=== PATIENT | female | born 1960 | race Native Hawaiian/Other Pacific Islander ===

== ENCOUNTER 2019-05-14 08:14 | Outpatient (CLI) | payer OTHER ==
[2019-05-14 11:04] LABS: HEMATOCRIT 42.6 % (36-48); HEMOGLOBIN 14.2 g/dL (12.0-16.0); LYMPHOCYTES # (AUTO) 2.8 K/uL (1.0-5.5); LYMPHOCYTES % (AUTO) 38.4 % (20.5-51.5); MEAN CORPUSCULAR HEMOGLOBIN 32 pg (27-31); MEAN CORPUSCULAR HGB CONC 33 % (32-36); MEAN CORPUSCULAR VOLUME 95 fL (79.0-98.0); MONOCYTES # (AUTO) 0.6 K/uL (0.0-1.0); MONOCYTES % (AUTO) 8.9 % (1.7-9.3); NEUTROPHILS # (AUTO) 3.8 K/uL (1.8-7.7); NEUTROPHILS % (AUTO) 52.7 % (40.0-70.0); PLATELET COUNT (AUTO) 257 K/uL (130-430); RED BLOOD CELL COUNT(AUTO) 4.49 MIL/uL (4.2-6.2); WHITE BLOOD COUNT (AUTO) 7.2 K/uL (4.8-10.8)
[2019-05-14 11:13] LABS: ALBUMIN 3.9 g/dL (3.4-4.8); CALCIUM 9.7 mg/dL (8.4-11.0); CREATININE 0.99 mg/dL (0.55-1.30); POTASSIUM 3.8 mmol/L (3.5-5.1); THYROID STIMULATING HORMONE 1.59 uIu/mL (0.34-4.82); TOTAL BILIRUBIN 0.5 mg/dL (0.0-1.0); URIC ACID 5.2 mg/dL (2.4-7.0)
[2019-05-15 08:06] LABS: RA LATEX TURBID <10.0 IU/mL (0.0-13.9)
[2019-05-15 11:11] LABS: ANTI NUCLEAR AB WITH REFLEX Negative (Negative)
[2019-05-15 12:38] LABS: HEMOGLOBIN A1C 6.7 % (4.8-5.6)
== END 2019-05-14 21:06 | disposition home or self-care (01) ==
LOC: SRD 08:14
PROVIDERS: ATTEND Internal Medicine
DX: Z00.00 Encounter for general adult medical examination without abnormal findings (principal)
CPT/HCPCS: 36415; 80053; 80061; 82306; 82607; 83036; 84443-TC; 84550-TC; 85025; 86038; 86431

== ENCOUNTER 2019-07-13 06:55 | Outpatient (CLI) | payer BC, OTHER ==
[2019-07-13 08:57] LABS: ALBUMIN 3.8 g/dL (3.4-4.8); CALCIUM 9.5 mg/dL (8.4-11.0); CREATININE 0.95 mg/dL (0.55-1.30); POTASSIUM 3.9 mmol/L (3.5-5.1); THYROID STIMULATING HORMONE 2.06 uIu/mL (0.36-3.74); TOTAL BILIRUBIN 0.5 mg/dL (0.0-1.0)
[2019-07-14 15:32] LABS: HEMOGLOBIN A1C 6.8 % (4.8-5.6)
== END 2019-07-13 20:10 | disposition home or self-care (01) ==
LOC: SLB 06:55
PROVIDERS: ATTEND Internal Medicine
DX: E55.9 Vitamin D deficiency, unspecified (principal); D51.9 Vitamin B12 deficiency anemia, unspecified; E78.5 Hyperlipidemia, unspecified; R73.03 Prediabetes
CPT/HCPCS: 36415; 80053; 80061; 82306; 82607; 83036; 84443-TC

== ENCOUNTER 2019-11-03 09:11 | Outpatient (CLI) | payer OTHER ==
[2019-11-03 09:48] LABS: BASOPHILS % (AUTO) 0.4 % (0.0-2.0); HEMATOCRIT 42.4 % (36-48); HEMOGLOBIN 14.1 g/dL (12.0-16.0); LYMPHOCYTES # (AUTO) 2.7 K/uL (1.0-5.5); LYMPHOCYTES % (AUTO) 34.6 % (20.5-51.5); MEAN CORPUSCULAR HEMOGLOBIN 31 pg (27-31); MEAN CORPUSCULAR HGB CONC 33 % (32-36); MEAN CORPUSCULAR VOLUME 94 fL (79.0-98.0); MONOCYTES # (AUTO) 0.6 K/uL (0.0-1.0); MONOCYTES % (AUTO) 7.7 % (1.7-9.3); NEUTROPHILS # (AUTO) 4.4 K/uL (1.8-7.7); NEUTROPHILS % (AUTO) 57.3 % (40.0-70.0); PLATELET COUNT (AUTO) 252 K/uL (130-430); RED CELL DISTRIBUTION WIDTH 13.7 % (9.0-15.0); WHITE BLOOD COUNT (AUTO) 7.7 K/uL (4.8-10.8)
[2019-11-03 10:21] LABS: BILIRUBIN,URINE 1+ (NEGATIVE); BLOOD, URINE NEGATIVE (NEGATIVE); CLARITY/URINE CLEAR (CLEAR); COLOR,URINE YELLOW (YELLOW); GLUCOSE,URINE NEGATIVE (NEGATIVE); KETONES,URINE NEGATIVE (NEGATIVE); LEUKOCYTE ESTERASE ,URINE NEGATIVE (NEGATIVE); NITRITE, URINE NEGATIVE (NEGATIVE); PH,URINE 7.5 (5.0-8.0); PROTEIN URINE NEGATIVE (NEGATIVE); UROBILINOGEN,URINE 0.2 (0.2-1.0)
[2019-11-03 10:58] LABS: POTASSIUM 3.8 mmol/L (3.5-5.1)
[2019-11-03 10:59] LABS: ALBUMIN 3.9 g/dL (3.4-4.8); CALCIUM 8.5 mg/dL (8.4-11.0); CREATININE 1.01 mg/dL (0.55-1.30); TOTAL BILIRUBIN 0.4 mg/dL (0.0-1.0)
[2019-11-03 11:00] LABS: THYROID STIMULATING HORMONE 2.43 uIu/mL (0.34-4.82)
[2019-11-10 18:07] LABS: CREATININE, URINE 155.8 mg/dL; MICROALBUMIN URINE RANDOM 12.8 ug/ml (NOT ESTABLISHED)
== END 2019-11-03 21:13 | disposition home or self-care (01) ==
LOC: SLB 09:11
PROVIDERS: ATTEND Internal Medicine
DX: E78.5 Hyperlipidemia, unspecified (principal); E11.29 Type 2 diabetes mellitus with other diabetic kidney complication
CPT/HCPCS: 36415; 80053; 80061; 81003; 82043; 82570; 83036; 84443-TC; 85025

== ENCOUNTER 2020-08-04 10:00 | Outpatient (CLI) | payer OTHER ==
[2020-08-04 11:00] LABS: BASOPHILS % (AUTO) 0.2 % (0.0-2.0); HEMATOCRIT 42.1 % (36-48); HEMOGLOBIN 14.1 g/dL (12.0-16.0); LYMPHOCYTES # (AUTO) 2.4 K/uL (1.0-5.5); LYMPHOCYTES % (AUTO) 29.3 % (20.5-51.5); MEAN CORPUSCULAR HEMOGLOBIN 31 pg (27-31); MEAN CORPUSCULAR HGB CONC 34 % (32-36); MEAN CORPUSCULAR VOLUME 93 fL (79.0-98.0); MONOCYTES # (AUTO) 0.6 K/uL (0.0-1.0); MONOCYTES % (AUTO) 7.5 % (1.7-9.3); PLATELET COUNT (AUTO) 252 K/uL (130-430); RED BLOOD CELL COUNT(AUTO) 4.51 MIL/uL (4.2-6.2); RED CELL DISTRIBUTION WIDTH 13.7 % (9.0-15.0)
[2020-08-04 11:21] LABS: ALBUMIN 3.7 g/dL (3.4-4.8); CREATININE 0.98 mg/dL (0.55-1.30); POTASSIUM 3.8 mmol/L (3.5-5.1); THYROID STIMULATING HORMONE 1.71 uIu/mL (0.34-4.82); TOTAL BILIRUBIN 0.5 mg/dL (0.0-1.0); URIC ACID 5.4 mg/dL (2.4-7.0)
[2020-08-06 11:36] LABS: HEMOGLOBIN A1C 6.7 % (4.8-5.6)
== END 2020-08-04 20:08 | disposition home or self-care (01) ==
LOC: SLB 10:00
PROVIDERS: ATTEND Internal Medicine
DX: E11.65 Type 2 diabetes mellitus with hyperglycemia (principal); E78.5 Hyperlipidemia, unspecified; E56.9 Vitamin deficiency, unspecified; E55.9 Vitamin D deficiency, unspecified
CPT/HCPCS: 36415; 80053; 80061; 82306; 82607; 83036; 84443-TC; 84550-TC; 85025

== ENCOUNTER 2020-10-10 15:20 | Inpatient (IN) | payer OTHER, SELFPAY ==
[~2020-10-10] VITALS: Ht 167.6 cm; Wt 98.0 kg
--- NOTE | 2020-10-10 15:25 | NUR ---
Assisted from car with wheelchair. Placed in FT chair 4. Report given to RN and
[2020-10-10 15:26] VITALS: BP_SYST 157
--- NOTE | 2020-10-10 15:47 | NUR ---
Dr Israel evaluating patient in FT3
[2020-10-10] MEDS ORDERED: methylPREDNISolone SOD SUCC/PF 62.5 MG/ML VIAL IVP ONE (16:00)
[2020-10-10] MEDS ORDERED: FAMOTIDINE PF 20 MG/2 ML VIAL IVP ONE (16:00)
[2020-10-10] MEDS ORDERED: IPRATROPIUM/ALBUTEROL SULFATE 3 ML AMPUL.NEB (DUONEB) INH ONE (16:00)
[2020-10-10] MEDS ORDERED: NS 500 ML IV ONE (16:00)
[2020-10-10] MEDS ORDERED: MAGNESIUM SULFATE 50 ML IV ONE (16:00)
--- NOTE | 2020-10-10 16:35 | NUR ---
Patient presented to ER C/O of asthma. Patient A&Ox4, afebrile, skin pink and warm, denies N/V/D, denies pain, respirations labored equal bilat. Patient on pulse-ox monitor 95%
--- NOTE | 2020-10-10 16:55 | NUR ---
Patient states she feels light headed and palpatations. Made Dr Israel aware.
--- NOTE | 2020-10-10 16:55 | NUR ---
Mg infusion stopped. NS IV infusion continued.
--- NOTE | 2020-10-10 16:59 | NUR ---
Dr. Israel at [facility] assess PT.
--- NOTE | 2020-10-10 17:06 | NUR ---
Nasal Jennifer swab obtained and sent to lab.
[2020-10-10 17:34] LABS: BASOPHILS % (AUTO) 0.7 % (0.0-2.0); HEMATOCRIT 41.2 % (36-48); HEMOGLOBIN 13.9 g/dL (12.0-16.0); LYMPHOCYTES # (AUTO) 2.4 K/uL (1.0-5.5); LYMPHOCYTES % (AUTO) 33.1 % (20.5-51.5); MEAN CORPUSCULAR HEMOGLOBIN 31 pg (27-31); MEAN CORPUSCULAR HGB CONC 34 % (32-36); MEAN CORPUSCULAR VOLUME 93 fL (79.0-98.0); MONOCYTES # (AUTO) 0.6 K/uL (0.0-1.0); MONOCYTES % (AUTO) 8.9 % (1.7-9.3); NEUTROPHILS # (AUTO) 4.1 K/uL (1.8-7.7); NEUTROPHILS % (AUTO) 57.3 % (40.0-70.0); PLATELET COUNT (AUTO) 267 K/uL (130-430); RED BLOOD CELL COUNT(AUTO) 4.44 MIL/uL (4.2-6.2); RED CELL DISTRIBUTION WIDTH 13.9 % (9.0-15.0); WHITE BLOOD COUNT (AUTO) 7.2 K/uL (4.8-10.8)
[2020-10-10] MEDS ORDERED: AZITHROMYCIN 500 MG/VIAL (ZITHROMAX) IV ONE (17:39)
[2020-10-10] MEDS ORDERED: AZITHROMYCIN 500 MG in NS 250 ML IV ONE (18:00)
--- NOTE | 2020-10-10 18:05 | NUR ---
Dr. Israel at discussing labs and antibiots per patient request
[2020-10-10 18:30] LABS: INR 0.9 (0.8-1.2); PROTHROMBIN TIME 9.6 SECS (9.5-12.5)
[2020-10-10] MEDS ORDERED: ACETAMINOPHEN 325 MG TABLET PO PRN (18:45)
--- NOTE | 2020-10-10 18:45 | NUR ---
Dr. SANTILLAN at bedside examining patient.
--- NOTE | 2020-10-10 18:55 | NUR ---
BELONGING LIST COMPLETED
[2020-10-10 18:59] LABS: CREATININE 0.99 mg/dL (0.55-1.30); POTASSIUM 3.4 mmol/L (3.5-5.1)
[2020-10-10] MEDS ORDERED: DEXTROSE 50% JECT 50 ML DISP.SYRIN IVP PRN (19:00)
--- NOTE | 2020-10-10 19:02 | NUR ---
Patient transported to radiology via WHEELCHAIR, accompanied by .
[2020-10-10] MEDS ORDERED: METF-510 PO (19:10)
[2020-10-10] MEDS ORDERED: CHRO400T10 PO (19:10)
[2020-10-10] MEDS ORDERED: MAGN400T10 PO (19:10)
[2020-10-10] MEDS ORDERED: MONT10TA27 PO (19:10)
[2020-10-10] MEDS ORDERED: ALBMDI INH (19:10)
[2020-10-10] MEDS ORDERED: SPIR25TA6 PO (19:10)
[2020-10-10] MEDS ORDERED: SITA100T11 PO (19:10)
[2020-10-10] MEDS ORDERED: CALC-1050 PO (19:10)
[2020-10-10] MEDS ORDERED: AZEL205.2 NS (19:10)
[2020-10-10] MEDS ORDERED: CYAN100010 SL (19:10)
[2020-10-10] MEDS ORDERED: KRIL1CAP21 PO (19:10)
[2020-10-10] MEDS ORDERED: VITD2000 PO (19:10)
[2020-10-10] MEDS ORDERED: FLUT9.9S NS (19:10)
--- NOTE | 2020-10-10 19:10 | NUR ---
Medication reconciliation completed with information provided by pt . Any prior medication reconciliation on file was reviewed and corrected.
[2020-10-10 19:14] LABS: ALBUMIN 3.4 g/dL (3.4-4.8); TOTAL BILIRUBIN 0.4 mg/dL (0.0-1.0)
[2020-10-10] MEDS: MONTELUKAST 10 MG TABLET PO SCH (19:14)
--- NOTE | 2020-10-10 19:15 | NUR ---
Returned from radiology, back to [facility].
[2020-10-10] MEDS: ALBUTEROL MDI INHALATION 8 GM INH INH SCH (19:16)
[2020-10-10] MEDS ORDERED: BENR30AU IM (19:21)
[2020-10-10] MEDS ORDERED: [UNRECOGNIZED DRUG - OTHER] (19:21)
[2020-10-10] MEDS ORDERED: UN (19:21)
[2020-10-10 19:30] LABS: BILIRUBIN,URINE NEGATIVE (NEGATIVE); CLARITY/URINE CLEAR (CLEAR); COLOR,URINE YELLOW (YELLOW); GLUCOSE,URINE NEGATIVE (NEGATIVE); KETONES,URINE 2+ (NEGATIVE); LEUKOCYTE ESTERASE ,URINE NEGATIVE (NEGATIVE); NITRITE, URINE NEGATIVE (NEGATIVE); PROTEIN URINE TRACE (NEGATIVE); UROBILINOGEN,URINE 0.2 (0.2-1.0)
--- NOTE | 2020-10-10 19:34 | NUR ---
REPORT TO LEONA AYERS
--- NOTE | 2020-10-10 19:35 | NUR ---
BEDSIDE REPORT RECEIVED FROM ANDRIA SANCHEZ PT RESTING QUIETLY IN ED BED WILL CONTINUE TO MONITOR
[2020-10-10 20:12] LABS: BLOOD, URINE TRACE (NEGATIVE)
[2020-10-10 20:18] LABS: BACTERIA,URINE FEW /HPF (None Seen); MUCUS,URINE None Seen /LPF (None Seen); WBC,URINE 0-3 /HPF (0-3)
[2020-10-10 20:53] LABS: C-REACTIVE PROTEIN QUANT 7.1 mg/dL (0-0.5)
[2020-10-10] MEDS: MAGNESIUM OXIDE 400 MG TABLET PO SCH (20:53)
[2020-10-10] MEDS: ASCORBIC ACID 500 MG TABLET PO SCH (20:54)
[2020-10-10] MEDS: CHOLECALCIFEROL (VITAMIN D3) 2,000 UNIT TABLET PO SCH (20:55)
[2020-10-10] MEDS: guaiFENesin ER 600 MG TAB PO SCH (20:55)
[2020-10-10] MEDS: ENOXAPARIN SODIUM 80 MG/0.8 ML SYRINGE SUBCUT SCH (20:56)
[2020-10-10] MEDS ORDERED: ENOXAPARIN SODIUM 100 MG/ML SYRINGE ONE (20:58)
[2020-10-10] MEDS: FLUTICASONE PROPIONATE 50 mCg/SPRAY 16 GM NS SCH (21:00)
[2020-10-10] MEDS ORDERED: PIPERACILLIN/TAZOBACTAM 3.375 GM/VIAL (ZOSYN) IV ONE (21:05)
[2020-10-10] MEDS ORDERED: INSULIN REGULAR, HUMAN 10 UNITS/0.1 ML INJ ONE (21:45)
[2020-10-10] MEDS: INSULIN REGULAR, HUMAN 100 UNITS/ML, 10 ML VIAL (humuLIN R) SUBCUT PRN (21:48)
--- NOTE | 2020-10-10 21:48 | NUR ---
BLOOD GLUCOSE 222 MD SANTILLAN AWARE 4 UNITS OF REGUALR INSULIN ADMINISTERED PER SLIDING SCALE
[2020-10-10] MEDS ORDERED: PIPERACILLIN/TAZO 3.375 GM in NS 50 ML IV ONE (22:00)
--- NOTE | 2020-10-10 22:00 | NUR ---
PT AMBULATED TO RESTROOM WITH LIMITED ASSISTANCE PT TOLERATED WELL AND BACK IN BED RESTING QUIETLY WIHT BOTH SIDE RAILS UP AND BED IN LOWEST POSITION WILL CONTINUE TO MONITOR
--- NOTE | 2020-10-10 22:32 | NUR ---
CONSULTATION PAGED/CALLED Reason for Consultation: COVID Person Who was Notified:YAZAN Consulting Physician: SHEREEN Data Acquisition Technician Specialty: ID Ordering Physician: JACQUE
--- NOTE | 2020-10-10 23:04 | NUR ---
PT TRANSFERED TO TELE FLOOR 119B BEDSIDE REPORT TO BE GIVEN TO CESAR AYERS
[2020-10-10 23:25] VITALS: BP_SYST 148
--- NOTE | 2020-10-10 23:25 | NUR ---
ADMISSION NOTE Received patient from ER via gurney. Patient admitted with diagnosis of ACUTE RESPIRATORY FAILURE/COVID PNA. Patient is awake, alert, oriented X 4. Patient oriented to hospital room, call light, toileting, pain management and safety-teach back done. Patient informed that CESAR will be HER nurse and that their room number is 119C. Personal belongings checked and Belongings List documented. Call light within reach.
[2020-10-11] MEDS ORDERED: LevALBUTEROL HCL 1.25 MG/0.5 ML *CONC.* VIAL.NEB (XOPENEX CONC.) INH PRN (00:45)
[2020-10-11] MEDS ORDERED: PROMETHAZINE-DM 6.25 MG-15 MG/5 ML UDC PO PRN (00:45)
[2020-10-11] MEDS ORDERED: PROMETHAZINE-DM 6.25 MG-15 MG/5 ML UDC ONE (01:32)
[2020-10-11] MEDS ORDERED: ALBUTEROL MDI INHALATION 8 GM INH INH PRN (02:00)
[2020-10-11] MEDS ORDERED: ALBUTEROL MDI INHALATION 8 GM INH ONE (02:10)
[2020-10-11 03:48] VITALS: BP_SYST 157
--- NOTE | 2020-10-11 06:35 | NUR ---
CLOSING NOTE NO CHANGES. PATIENT REMAINED STABLE THROUGHOUT THE NIGHT ON 4L NC, SHE HAD DYSPNEA ON EXERTION, SHE TOLERATED AMBULATING WITH OXYGEN WELL. SHE VERBALIZED PRN MEDICATION FOR COUGH HELPED HER COUGH SPASMS. PATIENT SLEPT WELL THROUGHOUT THE SHIFT, NO EPISODES OF RESPIRATORY. AT THIS TIME, PATIENT IS RESTING IN BED, STABLE, NO SIGNS OF RESPIRATORY DISTRESS. CALL LIGHT IS WITHIN REACH. BED IS LOCKED, ALARMED, AND AT THE LOWEST LEVEL. FALL, ASPIRATION, ISOLATION, SAFETY, AND RESPIRATORY PRECAUTIONS HAVE BEEN TAKEN THROUGHOUT THE SHIFT. WILL CONTINUE TO MONITOR UNTIL SHIFT REPORT IS GIVEN AT BEDSIDE TO AM NURSE. UNABLE TO DOCUMENT [id number] DUE TO HAVING 7 UNSTABLE TELE AND MEDSURG UNSTABLE PATIENTS, AND UNSAFE STAFFING RATIO.
[2020-10-11] MEDS: INSULIN REGULAR, HUMAN 100 UNITS/ML, 10 ML VIAL (humuLIN R) SUBCUT PRN ×4 (07:00→20:50)
[2020-10-11] MEDS: ALBUTEROL MDI INHALATION 8 GM INH INH SCH ×4 (07:00→20:19)
--- NOTE | 2020-10-11 08:30 | NUR ---
Opening Notes Patient is awake, alert and oriented x4. Pt remains on oximizer @ 5 LPM, tolerating well at this time. Patient is noted with dyspnea on excretion. Pt reports SOB during ambulation. Gait steady, BSC available at bedside and portable oxygen available as well. IV site on left AC, 18 gauge intact at this time, wrapped in Ortiz wrap, saline lock. Dressing clean and dry, flushing well. Patient is eating breakfast at this time, good appetite, ate 90% of breakfast. Patient is encouraged to self prone while in bed, aware and agreed. All needs met at this time. Safety and fall precautions in place. Bed in lowest position, locked. Will continue to monitor. Addendum: 10/11/20 at 2043 by Eda Sanders RN pt noted with a cough, dry.
[2020-10-11] MEDS: ASCORBIC ACID 500 MG TABLET PO SCH ×2 (09:00→20:50)
[2020-10-11] MEDS: CHOLECALCIFEROL (VITAMIN D3) 2,000 UNIT TABLET PO SCH ×2 (09:00→20:50)
[2020-10-11] MEDS: FAMOTIDINE 20 MG TABLET PO SCH ×2 (09:00→20:50)
[2020-10-11] MEDS: FLUTICASONE PROPIONATE 50 mCg/SPRAY 16 GM NS SCH ×2 (09:00→21:00)
[2020-10-11] MEDS: LORATADINE 10 MG TABLET PO SCH (09:00)
[2020-10-11] MEDS: ENOXAPARIN SODIUM 80 MG/0.8 ML SYRINGE SUBCUT SCH (09:00)
[2020-10-11] MEDS: MAGNESIUM OXIDE 400 MG TABLET PO SCH ×3 (09:00→20:50)
[2020-10-11] MEDS: DEXAMETHASONE SOD PHOSPHATE 10 MG/ML VIAL IVP SCH (09:00)
[2020-10-11] MEDS: guaiFENesin ER 600 MG TAB PO SCH ×2 (09:00→20:50)
--- NOTE | 2020-10-11 11:30 | NUR ---
Blood Sugar Patients BS was noted at 394 mg/dL. Per sliding scale, administered 10 units of regular insulin, tolerated well. Will continue to monitor.
[2020-10-11 12:00] VITALS: BP_SYST 149
--- NOTE | 2020-10-11 12:38 | NUR ---
PAGED PAGED TAMI CARDOZO AT [phone] SPOKE WITH MICHELLE.
[2020-10-11 15:52] LABS: ALBUMIN 3.5 g/dL (3.4-4.8); CALCIUM 9.1 mg/dL (8.4-11.0); CREATININE 1.15 mg/dL (0.55-1.30); POTASSIUM 4.6 mmol/L (3.5-5.1); TOTAL BILIRUBIN 0.4 mg/dL (0.0-1.0)
[2020-10-11 16:00] VITALS: BP_SYST 145
--- NOTE | 2020-10-11 17:00 | NUR ---
COVID PCR sent to lab
--- NOTE | 2020-10-11 17:00 | NUR ---
Patient is being seen and examined by DR SANTILLAN
--- NOTE | 2020-10-11 17:30 | NUR ---
Blood Sugar Patients BS was noted at 293 mg/dL. Per sliding scale, administered 6 units of regular insulin, tolerated well. Will continue to monitor.
[2020-10-11] MEDS ORDERED: AZITHROMYCIN 500 MG in NS 250 ML IV ONE (18:00)
[2020-10-11] MEDS: MONTELUKAST 10 MG TABLET PO SCH (18:33)
[2020-10-11] MEDS: metFORMIN HCL 500 MG TABLET PO SCH (18:33)
--- NOTE | 2020-10-11 19:00 | NUR ---
Closing Notes Patient is awake, alert and oriented x4. Pt is still noted with dyspnea on excertion. Patient remains on oximizer at 4 LPM, tolerating well at this time. Pt denies any pain at this time. IV site on left AC, 18 gauge intact at this time. IV ATB, Zithromax infusing well at this time. Pt still has IV ATB Remdesivir to be hung (received late from pharmacy), will endorse to next nurse, Karlie. All needs met at this time. Safety and fall precautions in place. Bed in lowest position, locked. Will continue to monitor.
--- NOTE | 2020-10-11 19:15 | NUR ---
OPENING NOTES PATIENT IS RESTING, SITTING UP, PATIENT HAS DYSPNEA ON EXERTION. IV SITE PATENT, DRESSINGS C/D/I, SALINE LOCK. IV ANTIBIOTICS BEING PROVIDED AT THIS TIME. CALL LIGHT WITHIN REACH, PATIENT DEMONSTRATES PROPER USAGE OF CALL LIGHT, BED AT LOWEST POSITION. WILL CONTINUE TO MONITOR.
[2020-10-11 20:00] VITALS: BP_SYST 144
--- NOTE | 2020-10-11 22:20 | NUR ---
REMDESIVIR PROVIDED TO PATIENT AFTER PRINT OUT EDUCATION PROVIDED TO PATIENT. IV SITE PATENT, DRESSINGS C/D/I, WILL CONTINUE TO MONITOR. PATIENT BACK IN BED, NO SIGNS OF DISTRESS NOTED AT THIS TIME. WILL CONTINUE TO MONITOR.
[2020-10-11] MEDS: guaiFENesin/DEXTROMETHORPHAN 10 ML UDC PO PRN (23:19)
[2020-10-12] VITALS: BP_SYST 144
[2020-10-12] MEDS: INSULIN REGULAR, HUMAN 100 UNITS/ML, 10 ML VIAL (humuLIN R) SUBCUT PRN ×3 (07:10→17:23)
[2020-10-12] MEDS: ALBUTEROL MDI INHALATION 8 GM INH INH SCH ×3 (07:20→19:53)
--- NOTE | 2020-10-12 07:25 | NUR ---
CLOSING NOTES PATIENT IS RESTING, SLEEPING ON STOMACH. NO COMPLAINTS OF RESPIRATORY DISTRESS THROUGHOUT THE NIGHT, 4L OXYMIZER. IV SITE PATENT, DRESSINGS C/D/I, SALINE LOCK. LARISSA COLE AT BEDSIDE. ALL NEEDS MET THROUGHOUT SHIFT. WILL ENDORSE CARE TO ONCOMING SHIFT.
[2020-10-12] MEDS: DEXAMETHASONE SOD PHOSPHATE 10 MG/ML VIAL IVP SCH (08:48)
[2020-10-12] MEDS: ASCORBIC ACID 500 MG TABLET PO SCH ×2 (08:48→21:17)
[2020-10-12] MEDS: metFORMIN HCL 500 MG TABLET PO SCH ×2 (08:48→17:25)
[2020-10-12] MEDS: guaiFENesin ER 600 MG TAB PO SCH ×2 (08:48→21:17)
[2020-10-12] MEDS: MAGNESIUM OXIDE 400 MG TABLET PO SCH ×3 (08:49→21:17)
[2020-10-12] MEDS: SPIRONOLACTONE 25 MG TABLET (ALDACTONE) PO SCH (08:49)
[2020-10-12] MEDS: LORATADINE 10 MG TABLET PO SCH (08:50)
[2020-10-12] MEDS: FAMOTIDINE 20 MG TABLET PO SCH ×2 (08:50→21:16)
[2020-10-12] MEDS: CHOLECALCIFEROL (VITAMIN D3) 2,000 UNIT TABLET PO SCH ×2 (08:50→21:17)
[2020-10-12] MEDS: ENOXAPARIN SODIUM 100 MG/ML SYRINGE SUBCUT SCH (08:51)
[2020-10-12] MEDS: guaiFENesin/DEXTROMETHORPHAN 10 ML UDC PO PRN (08:51)
[2020-10-12 09:08] VITALS: BP_SYST 149
[2020-10-12 09:18] LABS: ALBUMIN 3.3 g/dL (3.4-4.8); BASOPHILS % (AUTO) 0.3 % (0.0-2.0); CALCIUM 9.1 mg/dL (8.4-11.0); CREATININE 1.18 mg/dL (0.55-1.30); HEMATOCRIT 40.5 % (36-48); HEMOGLOBIN 13.7 g/dL (12.0-16.0); LYMPHOCYTES # (AUTO) 2.1 K/uL (1.0-5.5); LYMPHOCYTES % (AUTO) 21.2 % (20.5-51.5); MEAN CORPUSCULAR HEMOGLOBIN 31 pg (27-31); MEAN CORPUSCULAR HGB CONC 34 % (32-36); MEAN CORPUSCULAR VOLUME 93 fL (79.0-98.0); MONOCYTES # (AUTO) 1.1 K/uL (0.0-1.0); MONOCYTES % (AUTO) 10.7 % (1.7-9.3); NEUTROPHILS # (AUTO) 6.8 K/uL (1.8-7.7); NEUTROPHILS % (AUTO) 67.8 % (40.0-70.0); PLATELET COUNT (AUTO) 337 K/uL (130-430); POTASSIUM 4.2 mmol/L (3.5-5.1); RED BLOOD CELL COUNT(AUTO) 4.36 MIL/uL (4.2-6.2); RED CELL DISTRIBUTION WIDTH 13.5 % (9.0-15.0); TOTAL BILIRUBIN 0.3 mg/dL (0.0-1.0)
[2020-10-12 11:49] LABS: C-REACTIVE PROTEIN QUANT 6.4 mg/dL (0-0.5)
[2020-10-12 12:00] VITALS: BP_SYST 139
[2020-10-12] MEDS ORDERED: ONDANSETRON HCL 4 MG/2 ML VIAL ONE (12:29)
[2020-10-12] MEDS ORDERED: ONDANSETRON HCL 4 MG/2 ML VIAL IVP PRN (12:30)
--- NOTE | 2020-10-12 12:34 | NUR ---
Patient is nauseated after taking morning meds and it doesnt go away , Dr. Robertson informed Zofran IV push given , will monitor.
[2020-10-12] MEDS: AZITHROMYCIN 250 MG in NS 250 ML IV SCH (15:09)
[2020-10-12] MEDS: FLUTICASONE PROPIONATE 50 mCg/SPRAY 16 GM NS SCH ×2 (15:50→21:17)
[2020-10-12 16:00] VITALS: BP_SYST 125
[2020-10-12] MEDS: MONTELUKAST 10 MG TABLET PO SCH (17:25)
--- NOTE | 2020-10-12 20:15 | NUR ---
ROUNDS PATIENT RESTING COMFORTALY IN BED, NOT IN DISTRESS, VITALS STABLE. DENIES PAIN AT THIS TIME. ASSESSMENT DONE AND DOCUMENTED. NEEDS ATTENDED TO. SAFETY MEASURES IN PLACED. CALL LIGHT PLACED WITHIN REACH.
[2020-10-12] MEDS: METOCLOPRAMIDE HCL 10 MG/2 ML VIAL IVP PRN (21:47)
[2020-10-13 00:05] VITALS: BP_SYST 97
--- NOTE | 2020-10-13 00:12 | NUR ---
PATIENT RESTING: Patient resting quietly. No acute distress noted. Vital signs within normal range.
--- NOTE | 2020-10-13 06:50 | NUR ---
CLOSING NOTES PATIENT AWAKE, ACCU CHECK DONE WITH BLOOD SUGAR OF 158. 2 UNITS REGULAR INSULIN GIVEN SUBCU PER SLIDING SCALE. ALL NEEDS ATTENDED TO. CALL LIGHT PLACED WITHIN REACH.
[2020-10-13] MEDS: INSULIN REGULAR, HUMAN 100 UNITS/ML, 10 ML VIAL (humuLIN R) SUBCUT PRN ×4 (06:54→22:07)
[2020-10-13] MEDS: ALBUTEROL MDI INHALATION 8 GM INH INH SCH ×3 (07:36→20:10)
[2020-10-13 08:00] VITALS: BP_SYST 139
[2020-10-13 08:31] LABS: BASOPHILS % (AUTO) 0.3 % (0.0-2.0); HEMOGLOBIN 12.5 g/dL (12.0-16.0); LYMPHOCYTES # (AUTO) 2.7 K/uL (1.0-5.5); LYMPHOCYTES % (AUTO) 28.1 % (20.5-51.5); MEAN CORPUSCULAR HEMOGLOBIN 32 pg (27-31); MEAN CORPUSCULAR HGB CONC 34 % (32-36); MEAN CORPUSCULAR VOLUME 93 fL (79.0-98.0); MONOCYTES # (AUTO) 0.9 K/uL (0.0-1.0); MONOCYTES % (AUTO) 9.7 % (1.7-9.3); NEUTROPHILS % (AUTO) 61.9 % (40.0-70.0); PLATELET COUNT (AUTO) 297 K/uL (130-430); RED BLOOD CELL COUNT(AUTO) 3.98 MIL/uL (4.2-6.2); RED CELL DISTRIBUTION WIDTH 13.6 % (9.0-15.0); WHITE BLOOD COUNT (AUTO) 9.7 K/uL (4.8-10.8)
[2020-10-13 08:41] LABS: ALBUMIN 2.8 g/dL (3.4-4.8); CALCIUM 8.3 mg/dL (8.4-11.0); CREATININE 0.98 mg/dL (0.55-1.30); POTASSIUM 4.5 mmol/L (3.5-5.1); TOTAL BILIRUBIN 0.3 mg/dL (0.0-1.0)
[2020-10-13] MEDS: LORATADINE 10 MG TABLET PO SCH (08:47)
[2020-10-13] MEDS: guaiFENesin ER 600 MG TAB PO SCH ×2 (08:47→21:47)
[2020-10-13] MEDS: metFORMIN HCL 500 MG TABLET PO SCH ×2 (08:47→17:32)
[2020-10-13] MEDS: CHOLECALCIFEROL (VITAMIN D3) 2,000 UNIT TABLET PO SCH ×2 (08:47→21:47)
[2020-10-13] MEDS: SPIRONOLACTONE 25 MG TABLET (ALDACTONE) PO SCH (08:48)
[2020-10-13] MEDS: FAMOTIDINE 20 MG TABLET PO SCH ×2 (08:48→21:47)
[2020-10-13] MEDS: ASCORBIC ACID 500 MG TABLET PO SCH ×2 (08:48→21:47)
[2020-10-13] MEDS: DEXAMETHASONE SOD PHOSPHATE 10 MG/ML VIAL IVP SCH (08:49)
[2020-10-13] MEDS: MAGNESIUM OXIDE 400 MG TABLET PO SCH ×3 (08:49→21:47)
[2020-10-13] MEDS: ENOXAPARIN SODIUM 100 MG/ML SYRINGE SUBCUT SCH (08:49)
[2020-10-13] MEDS: FLUTICASONE PROPIONATE 50 mCg/SPRAY 16 GM NS SCH ×2 (09:00→21:47)
[2020-10-13] MEDS: METOCLOPRAMIDE HCL 10 MG/2 ML VIAL IVP PRN ×2 (09:02→15:09)
[2020-10-13 12:00] VITALS: BP_SYST 130
[2020-10-13 16:00] VITALS: BP_SYST 136
[2020-10-13] MEDS ORDERED: CALCIUM CARBONATE 500 MG/ TAB.CHEW PO PRN (16:15)
[2020-10-13] MEDS ORDERED: ONDANSETRON HCL 4 MG/2 ML VIAL IVP PRN (16:15)
[2020-10-13] MEDS: AZITHROMYCIN 250 MG in NS 250 ML IV SCH (16:26)
[2020-10-13] MEDS: MONTELUKAST 10 MG TABLET PO SCH (17:32)
--- NOTE | 2020-10-13 19:00 | NUR ---
Note Pt was checked on q1' and PRN all shift for needs and care. Pt was maintained with safety and isolation precautions all shift. IV in left hand intact and patent. Pt ambulates to restroom with steady gait. Call light within reach. O2 on all shift at 4L/nc. No needs noted at this time.
[2020-10-13 20:00] VITALS: BP_SYST 143
[2020-10-14] VITALS: BP_SYST 127
[2020-10-14] MEDS: ALBUTEROL MDI INHALATION 8 GM INH INH SCH ×4 (07:00→19:30)
[2020-10-14 08:00] VITALS: BP_SYST 140
[2020-10-14 09:12] LABS: BASOPHILS # (AUTO) 0.1 K/uL (0.0-0.2); BASOPHILS % (AUTO) 0.9 % (0.0-2.0); HEMATOCRIT 38.1 % (36-48); HEMOGLOBIN 12.7 g/dL (12.0-16.0); LYMPHOCYTES # (AUTO) 3.4 K/uL (1.0-5.5); LYMPHOCYTES % (AUTO) 34.2 % (20.5-51.5); MEAN CORPUSCULAR HEMOGLOBIN 31 pg (27-31); MEAN CORPUSCULAR HGB CONC 33 % (32-36); MEAN CORPUSCULAR VOLUME 92 fL (79.0-98.0); MONOCYTES # (AUTO) 1.3 K/uL (0.0-1.0); MONOCYTES % (AUTO) 12.9 % (1.7-9.3); NEUTROPHILS # (AUTO) 5.1 K/uL (1.8-7.7); PLATELET COUNT (AUTO) 329 K/uL (130-430); RED BLOOD CELL COUNT(AUTO) 4.14 MIL/uL (4.2-6.2); RED CELL DISTRIBUTION WIDTH 13.5 % (9.0-15.0); WHITE BLOOD COUNT (AUTO) 9.8 K/uL (4.8-10.8)
[2020-10-14] MEDS: MAGNESIUM OXIDE 400 MG TABLET PO SCH ×3 (09:17→21:11)
[2020-10-14] MEDS: ENOXAPARIN SODIUM 100 MG/ML SYRINGE SUBCUT SCH (09:17)
[2020-10-14] MEDS: DEXAMETHASONE SOD PHOSPHATE 10 MG/ML VIAL IVP SCH (09:18)
[2020-10-14] MEDS: metFORMIN HCL 500 MG TABLET PO SCH ×2 (09:18→17:55)
[2020-10-14] MEDS: LORATADINE 10 MG TABLET PO SCH (09:18)
[2020-10-14] MEDS: SPIRONOLACTONE 25 MG TABLET (ALDACTONE) PO SCH (09:18)
[2020-10-14] MEDS: guaiFENesin ER 600 MG TAB PO SCH ×2 (09:18→21:11)
[2020-10-14] MEDS: FLUTICASONE PROPIONATE 50 mCg/SPRAY 16 GM NS SCH ×2 (09:18→21:00)
[2020-10-14] MEDS: ASCORBIC ACID 500 MG TABLET PO SCH ×2 (09:19→21:11)
[2020-10-14] MEDS: CHOLECALCIFEROL (VITAMIN D3) 2,000 UNIT TABLET PO SCH ×2 (09:19→21:11)
[2020-10-14] MEDS: FAMOTIDINE 20 MG TABLET PO SCH (09:19)
[2020-10-14 10:26] LABS: CALCIUM 8.3 mg/dL (8.4-11.0); CREATININE 0.92 mg/dL (0.55-1.30); POTASSIUM 3.9 mmol/L (3.5-5.1); TOTAL BILIRUBIN 0.2 mg/dL (0.0-1.0)
[2020-10-14] MEDS: INSULIN REGULAR, HUMAN 100 UNITS/ML, 10 ML VIAL (humuLIN R) SUBCUT PRN ×3 (12:12→21:14)
--- NOTE | 2020-10-14 14:35 | NUR ---
NOTE DR SANTILLAN AT PT'S BEDSIDE ASSESSING PT AND ANSWERING QUESTIONS/CONCERNS AT THIS TIME.
[2020-10-14] MEDS: AZITHROMYCIN 250 MG in NS 250 ML IV SCH (15:49)
[2020-10-14 16:00] VITALS: BP_SYST 143
[2020-10-14 16:34] VITALS: BP_SYST 140
[2020-10-14] MEDS: MONTELUKAST 10 MG TABLET PO SCH (17:55)
[2020-10-14] MEDS: PANTOPRAZOLE SODIUM 40 MG TAB PO SCH (21:11)
[2020-10-14 21:17] VITALS: BP_SYST 106
--- NOTE | 2020-10-14 23:00 | NUR ---
PLASMA INITIATION: Consent signed per patient agreeing to administration of plasma. Blood has been type and crossmatched. Blood sent from blood bank. Information on unit of plasma checked against patient wristband at bedside by two nurses. All information matches. Patient or responsible libertarian informed of potential complications associated with blood transfusion. Informed of possible transfusion reaction symptoms. Aware of need to notify nurse at once of itching, shortness of breath, flushing, feeling of impending doom, or other symptoms not previously present. Vital signs taken within 5 minutes prior to initiation of transfusion. RN will remain with patient for first 15 minutes of transfusion at which time vital signs will be re-assessed.
[2020-10-15 01:00] VITALS: BP_SYST 99
--- NOTE | 2020-10-15 01:00 | NUR ---
PLASMA FINISHED INFUSING PT RESTING COMFORTABLY IN BED, VSS, NO S/S OF DISTRESS.
[2020-10-15 06:41] LABS: BASOPHILS % (AUTO) 0.1 % (0.0-2.0); HEMATOCRIT 35.5 % (36-48); HEMOGLOBIN 12.1 g/dL (12.0-16.0); LYMPHOCYTES # (AUTO) 3.2 K/uL (1.0-5.5); LYMPHOCYTES % (AUTO) 31.3 % (20.5-51.5); MEAN CORPUSCULAR HEMOGLOBIN 31 pg (27-31); MEAN CORPUSCULAR HGB CONC 34 % (32-36); MEAN CORPUSCULAR VOLUME 91 fL (79.0-98.0); MONOCYTES % (AUTO) 9.7 % (1.7-9.3); PLATELET COUNT (AUTO) 320 K/uL (130-430); RED BLOOD CELL COUNT(AUTO) 3.89 MIL/uL (4.2-6.2); RED CELL DISTRIBUTION WIDTH 13.3 % (9.0-15.0); WHITE BLOOD COUNT (AUTO) 10.1 K/uL (4.8-10.8)
[2020-10-15 06:56] LABS: ALBUMIN 2.8 g/dL (3.4-4.8); CALCIUM 8.3 mg/dL (8.4-11.0); CREATININE 1.06 mg/dL (0.55-1.30); POTASSIUM 3.8 mmol/L (3.5-5.1); TOTAL BILIRUBIN 0.2 mg/dL (0.0-1.0)
[2020-10-15] MEDS: INSULIN REGULAR, HUMAN 100 UNITS/ML, 10 ML VIAL (humuLIN R) SUBCUT PRN ×4 (07:36→21:08)
--- NOTE | 2020-10-15 07:54 | NUR ---
CLOSING NOTES PATIENT IS RESTING IN BED, NO S/S OF RESPIRATORY DISTRESS THROUGHOUT THE NIGHT, 2L NASAL CANNULA, BREATHING IS UNLABORED. IV SITE PATENT, DRESSINGS C/D/I, SALINE LOCK. ALL NEEDS MET THROUGHOUT SHIFT. WILL ENDORSED Addendum: 10/15/20 at 0755 by Nohelia Dinero RN MISBAH: CARE ENDORSED TO DAY SHIFT RN.
[2020-10-15 08:00] VITALS: BP_SYST 116
[2020-10-15] MEDS: metFORMIN HCL 500 MG TABLET PO SCH ×2 (08:30→19:56)
[2020-10-15] MEDS: guaiFENesin ER 600 MG TAB PO SCH ×2 (09:30→21:00)
[2020-10-15] MEDS: MAGNESIUM OXIDE 400 MG TABLET PO SCH ×3 (09:30→21:00)
[2020-10-15] MEDS: PANTOPRAZOLE SODIUM 40 MG TAB PO SCH ×2 (09:30→21:00)
[2020-10-15] MEDS: FLUTICASONE PROPIONATE 50 mCg/SPRAY 16 GM NS SCH ×2 (09:30→21:00)
[2020-10-15] MEDS: LORATADINE 10 MG TABLET PO SCH (09:30)
[2020-10-15] MEDS: ASCORBIC ACID 500 MG TABLET PO SCH ×2 (09:30→21:00)
[2020-10-15] MEDS: CHOLECALCIFEROL (VITAMIN D3) 2,000 UNIT TABLET PO SCH ×2 (09:30→21:00)
[2020-10-15] MEDS: DEXAMETHASONE SOD PHOSPHATE 10 MG/ML VIAL IVP SCH (09:40)
[2020-10-15] MEDS: ENOXAPARIN SODIUM 100 MG/ML SYRINGE SUBCUT SCH (09:40)
[2020-10-15] MEDS: SPIRONOLACTONE 25 MG TABLET (ALDACTONE) PO SCH (09:40)
[2020-10-15 13:00] VITALS: BP_SYST 146
--- NOTE | 2020-10-15 13:08 | NUR ---
Dietitian Recommendations * Recommend [facility] diet w/ Glucerna BID (ONS provides 440 kcal/day, 20 gm protein/day) * Encourage increase PO intakes LP, RD Please refer to Nutrition Assessment for details. Addendum: 10/15/20 at [address] Amended: Links added.
[2020-10-15 13:41] LABS: NEUTROPHILS % (AUTO) 58.9 % (40.0-70.0)
[2020-10-15 16:18] VITALS: BP_SYST 117
[2020-10-15] MEDS: ALBUTEROL MDI INHALATION 8 GM INH INH SCH ×2 (16:30→20:10)
[2020-10-15] MEDS: AZITHROMYCIN 250 MG in NS 250 ML IV SCH (16:59)
[2020-10-15] MEDS: MONTELUKAST 10 MG TABLET PO SCH (18:00)
[2020-10-15 20:00] VITALS: BP_SYST 116
[2020-10-16 01:00] VITALS: BP_SYST 122
[2020-10-16] MEDS: INSULIN REGULAR, HUMAN 100 UNITS/ML, 10 ML VIAL (humuLIN R) SUBCUT PRN ×4 (06:30→21:21)
[2020-10-16 08:00] VITALS: BP_SYST 124
[2020-10-16 08:21] LABS: BASOPHILS # (AUTO) 0.1 K/uL (0.0-0.2); BASOPHILS % (AUTO) 0.4 % (0.0-2.0); HEMATOCRIT 38.2 % (36-48); HEMOGLOBIN 12.8 g/dL (12.0-16.0); LYMPHOCYTES # (AUTO) 3.6 K/uL (1.0-5.5); LYMPHOCYTES % (AUTO) 28.7 % (20.5-51.5); MEAN CORPUSCULAR HEMOGLOBIN 31 pg (27-31); MEAN CORPUSCULAR HGB CONC 34 % (32-36); MEAN CORPUSCULAR VOLUME 92 fL (79.0-98.0); MONOCYTES # (AUTO) 1.3 K/uL (0.0-1.0); MONOCYTES % (AUTO) 10.8 % (1.7-9.3); NEUTROPHILS # (AUTO) 7.5 K/uL (1.8-7.7); NEUTROPHILS % (AUTO) 60.1 % (40.0-70.0); PLATELET COUNT (AUTO) 368 K/uL (130-430); RED BLOOD CELL COUNT(AUTO) 4.16 MIL/uL (4.2-6.2); RED CELL DISTRIBUTION WIDTH 13.2 % (9.0-15.0); WHITE BLOOD COUNT (AUTO) 12.5 K/uL (4.8-10.8)
[2020-10-16 08:35] LABS: CALCIUM 8.7 mg/dL (8.4-11.0); CREATININE 1.01 mg/dL (0.55-1.30); POTASSIUM 3.5 mmol/L (3.5-5.1); TOTAL BILIRUBIN 0.3 mg/dL (0.0-1.0)
[2020-10-16 08:55] LABS: C-REACTIVE PROTEIN QUANT 0.8 mg/dL (0-0.5)
[2020-10-16] MEDS: metFORMIN HCL 500 MG TABLET PO SCH (09:00)
[2020-10-16] MEDS: DEXAMETHASONE SOD PHOSPHATE 10 MG/ML VIAL IVP SCH (09:00)
[2020-10-16] MEDS: SPIRONOLACTONE 25 MG TABLET (ALDACTONE) PO SCH (09:00)
[2020-10-16] MEDS: ASCORBIC ACID 500 MG TABLET PO SCH ×2 (09:00→21:21)
[2020-10-16] MEDS: MAGNESIUM OXIDE 400 MG TABLET PO SCH ×3 (09:00→21:21)
[2020-10-16] MEDS: guaiFENesin ER 600 MG TAB PO SCH ×2 (09:00→21:21)
[2020-10-16] MEDS: FLUTICASONE PROPIONATE 50 mCg/SPRAY 16 GM NS SCH ×2 (09:00→21:21)
[2020-10-16] MEDS: CHOLECALCIFEROL (VITAMIN D3) 2,000 UNIT TABLET PO SCH ×2 (09:00→21:21)
[2020-10-16] MEDS: LORATADINE 10 MG TABLET PO SCH (09:00)
[2020-10-16] MEDS: ENOXAPARIN SODIUM 100 MG/ML SYRINGE SUBCUT SCH (09:00)
[2020-10-16] MEDS: PANTOPRAZOLE SODIUM 40 MG TAB PO SCH ×2 (09:00→21:21)
[2020-10-16 16:00] VITALS: BP_SYST 116
[2020-10-16] MEDS: AZITHROMYCIN 250 MG in NS 250 ML IV SCH (16:59)
[2020-10-16] MEDS: MONTELUKAST 10 MG TABLET PO SCH (18:00)
[2020-10-16 20:00] VITALS: BP_SYST 124
[2020-10-16] MEDS: ALBUTEROL MDI INHALATION 8 GM INH INH SCH ×2 (20:30→20:40)
[2020-10-17 02:00] VITALS: BP_SYST 118
[2020-10-17] MEDS: INSULIN REGULAR, HUMAN 100 UNITS/ML, 10 ML VIAL (humuLIN R) SUBCUT PRN ×3 (06:20→18:18)
[2020-10-17 06:59] LABS: HEMATOCRIT 39.5 % (36-48); HEMOGLOBIN 13.2 g/dL (12.0-16.0); LYMPHOCYTES # (AUTO) 3.1 K/uL (1.0-5.5); LYMPHOCYTES % (AUTO) 25.9 % (20.5-51.5); MEAN CORPUSCULAR HEMOGLOBIN 31 pg (27-31); MEAN CORPUSCULAR HGB CONC 33 % (32-36); MEAN CORPUSCULAR VOLUME 93 fL (79.0-98.0); MONOCYTES # (AUTO) 1.1 K/uL (0.0-1.0); NEUTROPHILS # (AUTO) 7.5 K/uL (1.8-7.7); NEUTROPHILS % (AUTO) 63.5 % (40.0-70.0); PLATELET COUNT (AUTO) 373 K/uL (130-430); RED BLOOD CELL COUNT(AUTO) 4.25 MIL/uL (4.2-6.2); RED CELL DISTRIBUTION WIDTH 13.5 % (9.0-15.0); WHITE BLOOD COUNT (AUTO) 11.8 K/uL (4.8-10.8)
[2020-10-17 07:16] LABS: CALCIUM 8.8 mg/dL (8.4-11.0); CREATININE 1.1 mg/dL (0.55-1.30); POTASSIUM 4.2 mmol/L (3.5-5.1); TOTAL BILIRUBIN 0.3 mg/dL (0.0-1.0)
[2020-10-17 07:35] LABS: EOSINOPHILS % (AUTO) 1.6 % (0.0-4.0)
[2020-10-17 07:36] LABS: EOSINOPHILS # (AUTO) 0.2 K/uL (0.0-0.4)
[2020-10-17] MEDS: ALBUTEROL MDI INHALATION 8 GM INH INH SCH ×3 (07:49→16:07)
--- NOTE | 2020-10-17 08:00 | NUR ---
ASSUMPTION OF CARE: RECEIVED PT A/A/OX4, DX:INADEQUATE VENTILATION, R/T COVID-19/PNA, AFEBRILE, VSS, NO S/S OF DISTRESS, BREATH SOUNDS ARE CLEAR IN BILATERAL UPPER LOBES, DIMINISHED IN BILATERAL LOWER LOBES, O2 SAT=94% ON 2L VIA NC, IV SITE INTACT, PATENT, NO REDNESS OR SWELLING, NO C/O PAIN OR DISCOMFORT, ORIENTED TO UNIT, CALL LIGHT PLACED WITHIN REACH, WILL CONT' TO MONITOR AND ASSESS.
[2020-10-17 08:30] VITALS: BP_SYST 133
[2020-10-17] MEDS ORDERED: DEXAMETHASONE SOD PHOSPHATE 10 MG/ML VIAL IVP SCH (09:00)
[2020-10-17] MEDS: ASCORBIC ACID 500 MG TABLET PO SCH (09:18)
[2020-10-17] MEDS: guaiFENesin ER 600 MG TAB PO SCH (09:19)
[2020-10-17] MEDS: PANTOPRAZOLE SODIUM 40 MG TAB PO SCH (09:19)
[2020-10-17] MEDS: metFORMIN HCL 500 MG TABLET PO SCH ×2 (09:19→18:30)
[2020-10-17] MEDS: LORATADINE 10 MG TABLET PO SCH (09:19)
[2020-10-17] MEDS: CHOLECALCIFEROL (VITAMIN D3) 2,000 UNIT TABLET PO SCH (09:19)
[2020-10-17] MEDS: SPIRONOLACTONE 25 MG TABLET (ALDACTONE) PO SCH (09:20)
[2020-10-17] MEDS: MAGNESIUM OXIDE 400 MG TABLET PO SCH ×2 (09:20→15:00)
[2020-10-17] MEDS: ENOXAPARIN SODIUM 100 MG/ML SYRINGE SUBCUT SCH (09:21)
[2020-10-17] MEDS: FLUTICASONE PROPIONATE 50 mCg/SPRAY 16 GM NS SCH (09:36)
[2020-10-17 11:20] VITALS: BP_SYST 133
[2020-10-17 12:00] VITALS: BP_SYST 132
--- NOTE | 2020-10-17 17:40 | NUR ---
VISIT: AT BEDSIDE FOR ASSESSMENT OF PT, DISCUSSED POC, VERBALIZES UNDERSTANDING, NEW ORDERS GIVEN, WILL CONT' WITH POC.
--- NOTE | 2020-10-17 18:00 | NUR ---
DISCHARGE: PT DISCHARGED TO HOME IN STABLE CONDITION, INSTRUCTIONS GIVEN WITH PRESCRIPTION AND POST OP CARE, VERBALIZES UNDERSTANDING, IV SITE DISCONTINUED, TOLERATED WELL, ALL BELONGINGS ACCOUNTED FOR AND RETURNED TO PT, FAMILY NOTIFIED AND AWAITING IN LOBBY FOR PICK-UP AND TRANSPORT TO HOME, ESCORTED VIA WHEELCHAIR ACCOMPANIED BY STAFF.
[2020-10-17 18:14] VITALS: BP_SYST 133
[2020-10-17] MEDS ORDERED: APIX2.5T PO (18:19)
[2020-10-17] MEDS ORDERED: DOXY100T2 PO (18:19)
[2020-10-17] MEDS ORDERED: VIT1TABL67 PO (18:20)
[2020-10-17] MEDS: MONTELUKAST 10 MG TABLET PO SCH (18:31)
== END 2020-10-17 19:15 | disposition home or self-care (01) | DRG 177 ==
LOC: SED 15:20 → EEVIPCON 15:20 → SMU 18:15
PROVIDERS: ADMIT Internal Medicine; ATTEND Internal Medicine
PROC: XW033E5 Introduction of Remdesivir Anti-infective into Peripheral Vein, Percutaneous Approach, New Technology Group 5 (ICD-10-PCS; principal; 2020-10-11)
PROC: XW13325 Transfusion of Convalescent Plasma (Nonautologous) into Peripheral Vein, Percutaneous Approach, New Technology Group 5 (ICD-10-PCS; 2020-10-14)
DX: U07.1 COVID-19 (principal); J12.89 Other viral pneumonia; J96.01 Acute respiratory failure with hypoxia; J45.901 Unspecified asthma with (acute) exacerbation; J67.9 Hypersensitivity pneumonitis due to unspecified organic dust; E44.1 Mild protein-calorie malnutrition; E11.9 Type 2 diabetes mellitus without complications; E66.9 Obesity, unspecified; Z88.2 Allergy status to sulfonamides; Z79.899 Other long term (current) drug therapy; Z68.34 Body mass index [BMI] 34.0-34.9, adult
CPT/HCPCS: 36415; 36600; 71045; 71250-TC; 76376; 80048; 80053; 81000-TC; 82550-TC; 82728; 82803-TC; 82962; 83036; 83605; 83615-TC; 83880; 84484; 85025; 85379; 85384-TC; 85610-TC; 85730-TC; 86140; 86886; 86900; 86901; 87040-TC; 87086; 93005; 94640; 94760; 96365; 96366; 96368; 96375; 99291; J0456; J0696; J1100; J1650; J1815; J2405; J2543; J2765; J2930; J3475; J3490; J7040; J7050; J7060; P9017; U0003

== ENCOUNTER 2021-03-15 11:06 | Outpatient (CLI) | payer OTHER ==
[~2021-03-15 11:06] MED LIST: ALBMDI INH; APIX2.5T PO; AZEL205.2 NS; BENR30AU IM; CALC-1050 PO; CHRO400T10 PO; CYAN100010 SL; DOXY100T2 PO; FLUT9.9S NS; KRIL1CAP21 PO; MAGN400T10 PO; METF-518 PO; MONT10TA33 PO; SITA100T11 PO; SPIR25TA6 PO; UN; VIT1TABL67 PO; VITD2000 PO; [UNRECOGNIZED DRUG - OTHER]
[2021-03-15 11:47] LABS: BILIRUBIN,URINE NEGATIVE (NEGATIVE); BLOOD, URINE NEGATIVE (NEGATIVE); CLARITY/URINE CLEAR (CLEAR); COLOR,URINE YELLOW (YELLOW); GLUCOSE,URINE NEGATIVE (NEGATIVE); KETONES,URINE 1+ (NEGATIVE); LEUKOCYTE ESTERASE ,URINE NEGATIVE (NEGATIVE); NITRITE, URINE NEGATIVE (NEGATIVE); PROTEIN URINE NEGATIVE (NEGATIVE); UROBILINOGEN,URINE 0.2 (0.2-1.0)
[2021-03-15 11:50] LABS: BASOPHILS % (AUTO) 0.1 % (0.0-2.0); HEMATOCRIT 41.2 % (36-48); LYMPHOCYTES # (AUTO) 2.5 K/uL (1.0-5.5); LYMPHOCYTES % (AUTO) 34.5 % (20.5-51.5); MEAN CORPUSCULAR HEMOGLOBIN 32 pg (27-31); MEAN CORPUSCULAR HGB CONC 34 % (32-36); MEAN CORPUSCULAR VOLUME 93 fL (79.0-98.0); MONOCYTES # (AUTO) 0.6 K/uL (0.0-1.0); MONOCYTES % (AUTO) 7.8 % (1.7-9.3); NEUTROPHILS # (AUTO) 4.2 K/uL (1.8-7.7); NEUTROPHILS % (AUTO) 57.6 % (40.0-70.0); PLATELET COUNT (AUTO) 247 K/uL (130-430); RED BLOOD CELL COUNT(AUTO) 4.44 MIL/uL (4.2-6.2); RED CELL DISTRIBUTION WIDTH 13.9 % (9.0-15.0); WHITE BLOOD COUNT (AUTO) 7.4 K/uL (4.8-10.8)
[2021-03-15 12:17] LABS: ALBUMIN 3.9 g/dL (3.4-4.8); CALCIUM 9.2 mg/dL (8.4-11.0); CREATININE 1.01 mg/dL (0.55-1.30); POTASSIUM 3.7 mmol/L (3.5-5.1); THYROID STIMULATING HORMONE 2.38 uIu/mL (0.36-3.74); TOTAL BILIRUBIN 0.4 mg/dL (0.0-1.0)
[2021-03-16 09:21] LABS: HEMOGLOBIN A1C 6.9 % (4.8-5.6)
== END 2021-03-15 21:05 | disposition home or self-care (01) ==
LOC: SLB 11:06
PROVIDERS: ATTEND Internal Medicine
DX: E11.65 Type 2 diabetes mellitus with hyperglycemia (principal); E55.9 Vitamin D deficiency, unspecified; E66.9 Obesity, unspecified; E56.9 Vitamin deficiency, unspecified; E78.5 Hyperlipidemia, unspecified
CPT/HCPCS: 36415; 80053; 80061; 81003; 82043; 82306; 82570; 82607; 83036; 84443; 85025

== ENCOUNTER 2021-07-05 09:45 | Outpatient (CLI) | payer OTHER ==
[2021-07-05 10:23] LABS: BASOPHILS % (AUTO) 0.2 % (0.0-2.0); HEMATOCRIT 41.6 % (36-48); HEMOGLOBIN 14.1 g/dL (12.0-16.0); LYMPHOCYTES # (AUTO) 2.6 K/uL (1.0-5.5); LYMPHOCYTES % (AUTO) 36.4 % (20.5-51.5); MEAN CORPUSCULAR HEMOGLOBIN 32 pg (27-31); MEAN CORPUSCULAR HGB CONC 34 % (32-36); MEAN CORPUSCULAR VOLUME 93 fL (79.0-98.0); MONOCYTES # (AUTO) 0.7 K/uL (0.0-1.0); MONOCYTES % (AUTO) 9.1 % (1.7-9.3); NEUTROPHILS # (AUTO) 3.9 K/uL (1.8-7.7); NEUTROPHILS % (AUTO) 54.3 % (40.0-70.0); PLATELET COUNT (AUTO) 230 K/uL (130-430); RED BLOOD CELL COUNT(AUTO) 4.48 MIL/uL (4.2-6.2); RED CELL DISTRIBUTION WIDTH 13.5 % (9.0-15.0); WHITE BLOOD COUNT (AUTO) 7.2 K/uL (4.8-10.8)
[2021-07-05 10:36] LABS: BILIRUBIN,URINE NEGATIVE (NEGATIVE); BLOOD, URINE NEGATIVE (NEGATIVE); CLARITY/URINE CLEAR (CLEAR); COLOR,URINE YELLOW (YELLOW); GLUCOSE,URINE NEGATIVE (NEGATIVE); KETONES,URINE NEGATIVE (NEGATIVE); LEUKOCYTE ESTERASE ,URINE NEGATIVE (NEGATIVE); NITRITE, URINE NEGATIVE (NEGATIVE); PROTEIN URINE NEGATIVE (NEGATIVE); UROBILINOGEN,URINE 0.2 (0.2-1.0)
[2021-07-05 10:46] LABS: ALBUMIN 3.8 g/dL (3.4-4.8); C-REACTIVE PROTEIN QUANT 0.5 mg/dL (0-0.5); CALCIUM 9.6 mg/dL (8.4-11.0); CREATININE 0.97 mg/dL (0.55-1.30); THYROID STIMULATING HORMONE 1.89 uIu/mL (0.34-4.82); TOTAL BILIRUBIN 0.4 mg/dL (0.0-1.0)
[2021-07-05 11:05] LABS: ERYTHROCYTE SEDIMENTATION RATE 8 MM/HR (0-20)
== END 2021-07-05 20:48 | disposition home or self-care (01) ==
LOC: SLB 09:45
PROVIDERS: ATTEND Internal Medicine
DX: E11.65 Type 2 diabetes mellitus with hyperglycemia (principal); E66.9 Obesity, unspecified; M17.0 Bilateral primary osteoarthritis of knee; M85.80 Other specified disorders of bone density and structure, unspecified site
CPT/HCPCS: 36415; 80053; 80061; 81003; 83735; 84443; 85025; 85651-TC; 86140

== ENCOUNTER 2021-07-06 09:27 | Outpatient (CLI) | payer OTHER | END 2021-07-06 19:45 | disposition home or self-care (01) | LOC: SMI 09:27 | PROVIDERS: ATTEND Internal Medicine | DX: M47.812 Spondylosis without myelopathy or radiculopathy, cervical region (principal); M50.31 Other cervical disc degeneration, high cervical region; M48.02 Spinal stenosis, cervical region; M89.38 Hypertrophy of bone, other site | CPT/HCPCS: 72141 ==

== ENCOUNTER 2022-03-15 10:14 | Outpatient (CLI) | payer OTHER ==
[~2022-03-15 10:14] MED LIST changes: +MONT-40 PO; -MONT10TA33 PO
[2022-03-15 12:04] LABS: BASOPHILS % (AUTO) 0.4 % (0.0-2.0); HEMATOCRIT 42.1 % (36-48); HEMOGLOBIN 14.2 g/dL (12.0-16.0); LYMPHOCYTES # (AUTO) 2.8 K/uL (1.0-5.5); LYMPHOCYTES % (AUTO) 38.7 % (20.5-51.5); MEAN CORPUSCULAR HEMOGLOBIN 31 pg (27-31); MEAN CORPUSCULAR HGB CONC 34 % (32-36); MEAN CORPUSCULAR VOLUME 92 fL (79.0-98.0); MONOCYTES # (AUTO) 0.6 K/uL (0.0-1.0); MONOCYTES % (AUTO) 8.3 % (1.7-9.3); NEUTROPHILS # (AUTO) 3.7 K/uL (1.8-7.7); NEUTROPHILS % (AUTO) 52.6 % (40.0-70.0); PLATELET COUNT (AUTO) 267 K/uL (130-430); RED CELL DISTRIBUTION WIDTH 13.8 % (9.0-15.0); WHITE BLOOD COUNT (AUTO) 7.1 K/uL (4.8-10.8)
[2022-03-15 12:07] LABS: BILIRUBIN,URINE NEGATIVE (NEGATIVE); BLOOD, URINE NEGATIVE (NEGATIVE); CLARITY/URINE CLEAR (CLEAR); COLOR,URINE YELLOW (YELLOW); GLUCOSE,URINE NEGATIVE (NEGATIVE); KETONES,URINE NEGATIVE (NEGATIVE); LEUKOCYTE ESTERASE ,URINE NEGATIVE (NEGATIVE); NITRITE, URINE NEGATIVE (NEGATIVE); PH,URINE 6.5 (5.0-8.0); PROTEIN URINE NEGATIVE (NEGATIVE); UROBILINOGEN,URINE 0.2 (0.2-1.0)
[2022-03-15 12:26] LABS: ALBUMIN 3.7 g/dL (3.4-4.8); CREATININE 1.02 mg/dL (0.55-1.30); POTASSIUM 4.1 mmol/L (3.5-5.1); THYROID STIMULATING HORMONE 2.39 uIu/mL (0.36-3.74); TOTAL BILIRUBIN 0.3 mg/dL (0.0-1.0)
[2022-03-16 09:27] LABS: HEMOGLOBIN A1C 6.7 % (4.8-5.6)
== END 2022-03-15 14:00 | disposition home or self-care (01) ==
LOC: SLB 10:14
PROVIDERS: ATTEND Internal Medicine
DX: I10 Essential (primary) hypertension (principal); E11.65 Type 2 diabetes mellitus with hyperglycemia; E66.9 Obesity, unspecified; E56.9 Vitamin deficiency, unspecified; E55.9 Vitamin D deficiency, unspecified
CPT/HCPCS: 36415; 80053; 80061; 81003; 82306; 82607; 83036; 84443; 85025

== ENCOUNTER 2022-08-31 09:13 | Outpatient (CLI) | payer OTHER ==
[2022-08-31 09:48] LABS: BASOPHILS % (AUTO) 0.2 % (0.0-2.0); HEMATOCRIT 41.8 % (36-48); HEMOGLOBIN 14.3 g/dL (12.0-16.0); LYMPHOCYTES # (AUTO) 2.6 K/uL (1.0-5.5); LYMPHOCYTES % (AUTO) 33.7 % (20.5-51.5); MEAN CORPUSCULAR HEMOGLOBIN 31 pg (27-31); MEAN CORPUSCULAR HGB CONC 34 % (32-36); MEAN CORPUSCULAR VOLUME 92 fL (79.0-98.0); MONOCYTES # (AUTO) 0.7 K/uL (0.0-1.0); MONOCYTES % (AUTO) 9.9 % (1.7-9.3); NEUTROPHILS # (AUTO) 4.3 K/uL (1.8-7.7); NEUTROPHILS % (AUTO) 56.2 % (40.0-70.0); PLATELET COUNT (AUTO) 223 K/uL (130-430); RED BLOOD CELL COUNT(AUTO) 4.56 MIL/uL (4.2-6.2); RED CELL DISTRIBUTION WIDTH 13.4 % (9.0-15.0); WHITE BLOOD COUNT (AUTO) 7.6 K/uL (4.8-10.8)
[2022-08-31 09:50] LABS: BILIRUBIN,URINE 1+ (NEGATIVE); BLOOD, URINE NEGATIVE (NEGATIVE); CLARITY/URINE CLEAR (CLEAR); COLOR,URINE YELLOW (YELLOW); GLUCOSE,URINE NEGATIVE (NEGATIVE); KETONES,URINE TRACE (NEGATIVE); LEUKOCYTE ESTERASE ,URINE NEGATIVE (NEGATIVE); NITRITE, URINE NEGATIVE (NEGATIVE); PH,URINE 5.5 (5.0-8.0); PROTEIN URINE NEGATIVE (NEGATIVE); UROBILINOGEN,URINE 0.2 (0.2-1.0)
[2022-08-31 10:24] LABS: CALCIUM 9.4 mg/dL (8.4-11.0); THYROID STIMULATING HORMONE 1.56 uIu/mL (0.34-4.82); TOTAL BILIRUBIN 0.5 mg/dL (0.0-1.0)
[2022-09-02 08:23] LABS: HEMOGLOBIN A1C 7.2 % (4.8-5.6)
== END 2022-08-31 20:11 | disposition home or self-care (01) ==
LOC: SLB 09:13
PROVIDERS: ATTEND Internal Medicine
DX: E11.65 Type 2 diabetes mellitus with hyperglycemia (principal); I10 Essential (primary) hypertension; E78.5 Hyperlipidemia, unspecified; E55.9 Vitamin D deficiency, unspecified; E56.9 Vitamin deficiency, unspecified
CPT/HCPCS: 36415; 80053; 80061; 81003; 82306; 82607; 83036; 84443; 85025

== ENCOUNTER 2022-12-11 09:27 | Outpatient (CLI) | payer OTHER ==
[2022-12-11 10:41] LABS: BASOPHILS % (AUTO) 0.5 % (0.0-2.0); EOSINOPHILS # (AUTO) 0.3 K/uL (0.0-0.4); EOSINOPHILS % (AUTO) 2.9 % (0.0-4.0); HEMATOCRIT 44.5 % (36-48); LYMPHOCYTES % (AUTO) 30.5 % (20.5-51.5); MEAN CORPUSCULAR HEMOGLOBIN 31 pg (27-31); MEAN CORPUSCULAR HGB CONC 34 % (32-36); MEAN CORPUSCULAR VOLUME 93 fL (79.0-98.0); MONOCYTES # (AUTO) 0.8 K/uL (0.0-1.0); MONOCYTES % (AUTO) 7.6 % (1.7-9.3); NEUTROPHILS # (AUTO) 5.8 K/uL (1.8-7.7); NEUTROPHILS % (AUTO) 58.5 % (40.0-70.0); PLATELET COUNT (AUTO) 226 K/uL (130-430); RED BLOOD CELL COUNT(AUTO) 4.79 MIL/uL (4.2-6.2); RED CELL DISTRIBUTION WIDTH 13.9 % (9.0-15.0); WHITE BLOOD COUNT (AUTO) 9.9 K/uL (4.8-10.8)
[2022-12-11 11:12] LABS: ALBUMIN 4.3 g/dL (3.4-4.8); CALCIUM 9.8 mg/dL (8.4-11.0); CREATININE 1.1 mg/dL (0.55-1.30); THYROID STIMULATING HORMONE 1.85 uIu/mL (0.34-4.82); TOTAL BILIRUBIN 0.5 mg/dL (0.0-1.0); URIC ACID 4.9 mg/dL (2.4-7.0)
[2022-12-11 11:22] LABS: BILIRUBIN,URINE 1+ (NEGATIVE); BLOOD, URINE NEGATIVE (NEGATIVE); CLARITY/URINE CLEAR (CLEAR); COLOR,URINE YELLOW (YELLOW); GLUCOSE,URINE NEGATIVE (NEGATIVE); KETONES,URINE 1+ (NEGATIVE); LEUKOCYTE ESTERASE ,URINE NEGATIVE (NEGATIVE); NITRITE, URINE NEGATIVE (NEGATIVE); PH,URINE 5.5 (5.0-8.0); PROTEIN URINE TRACE (NEGATIVE); UROBILINOGEN,URINE 0.2 (0.2-1.0)
[2022-12-11 11:46] LABS: BACTERIA,URINE None Seen /HPF (None Seen); MUCUS,URINE 1+ /LPF (None Seen); RBC,URINE 0-3 /HPF (0-3); WBC,URINE 0-3 /HPF (0-3)
== END 2022-12-11 19:39 | disposition home or self-care (01) ==
LOC: SGI 09:27
PROVIDERS: ATTEND Internal Medicine
DX: E11.65 Type 2 diabetes mellitus with hyperglycemia (principal); E78.5 Hyperlipidemia, unspecified; E03.9 Hypothyroidism, unspecified; E55.9 Vitamin D deficiency, unspecified; E56.9 Vitamin deficiency, unspecified
CPT/HCPCS: 36415; 80053; 80061; 81000; 82306; 82607; 83037; 84443; 84550; 85025